=== PATIENT | male | born 1940 | race Caucasian/White ===

== ENCOUNTER 2016-05-02 08:52 | Inpatient (IN) | payer OTHER ==
--- NOTE | 2016-05-02 09:04 | PDOC ---
History of Present Illness <Lionel Richards - Last Filed: 05/02/16 13:23> - General History Source: Patient Exam Limitations: No Limitations - History of Present Illness Initial Comments: 05/02/16 09:19 The patient is a 76-year-old male with a significant past medical history of BPH and HTN, and presents to the emergency department with inguinal swelling and abdominal pain for 2 days. The patient reports that he developed a hernia in the right groin area, which worsened in size as he was shoveling for the past 2 days. He reports increasing RLQ pain and swelling, which radiates to the midgastric region. He reports associated nausea, constipation, and loss of appetite. The patient denies chest pain, shortness of breath, headache and dizziness. The patient denies fever, chills, vomit, and diarrhea. The patient denies dysuria, frequency, urgency and hematuria. Allergies: NKDA Social History: Current everyday smoker (20 cigarettes per day) PCP: Dr. Ivey <January Cortes - Last Filed: 05/02/16 13:52> - General Chief Complaint: Pain, Acute Stated Complaint: STOMACH PAIN Time Seen by Provider: 05/02/16 09:03 Past History <Lionel Richards - Last Filed: 05/02/16 13:23> <January Cortes - Last Filed: 05/02/16 13:52> - Past Medical History Allergies/Adverse Reactions: Allergies Allergy/AdvReac Type Severity Reaction Status Date / Time No Known Allergies Allergy Verified 05/02/16 09:02 Home Medications: Ambulatory Orders Amlodipine Besylate/Benazepril [Lotrel 5-40 mg Capsule] 1 each PO DAILY Atorvastatin Calcium 20 mg PO DAILY 05/02/16 Cholecalciferol (Vitamin D3) [Vitamin D3 -] 1,000 unit PO DAILY 05/02/16 Clopidogrel Bisulfate [Plavix -] 75 mg PO DAILY 05/02/16 Tamsulosin HCl 0.4 mg PO DAILY 05/02/16 Review of Systems - Review of Systems Able to Perform ROS?: Yes Comments:: 05/02/16 09:19 GENERAL/CONSTITUTIONAL: No fever or chills. No weakness. (+) Loss of appetite. HEAD, EYES, EARS, NOSE AND THROAT: No change in vision. No ear pain or discharge. No sore throat. CARDIOVASCULAR: No chest pain or shortness of breath. RESPIRATORY: No cough, wheezing, or hemoptysis. GASTROINTESTINAL: (+) Abdominal pain. (+) Abdominal swelling. (+) Nausea. (+) Constipation. No vomiting or diarrhea. GENITOURINARY: No dysuria, frequency, or change in urination. MUSCULOSKELETAL: No joint or muscle pain. No neck or back pain. SKIN: No rash NEUROLOGIC: No headache, vertigo, loss of consciousness, or change in strength/ sensation. ENDOCRINE: No increased thirst. No abnormal weight change. HEMATOLOGIC/LYMPHATIC: No anemia, easy bleeding, or history of blood clots. ALLERGIC/IMMUNOLOGIC: No hives or skin allergy. <January Cortes - Last Filed: 05/02/16 13:52> *Physical Exam - Vital Signs Last Vital Signs Temp Pulse Resp BP Pulse Ox 97.5 F L 87 18 189/95 100 05/02/16 09:02 05/02/16 09:02 05/02/16 09:02 05/02/16 09:02 05/02/16 09:02 - Physical Exam Comments: 05/02/16 09:19 GENERAL: Awake, alert, and fully oriented, in no acute distress HEAD: No signs of trauma EYES: PERRLA, EOMI, sclera anicteric, conjunctiva clear ENT: Auricles normal inspection, hearing grossly normal, nares patent, oropharynx clear without exudates. Moist mucosa NECK: Normal ROM, supple, no lymphadenopathy, JVD, or masses LUNGS: Breath sounds equal, clear to auscultation bilaterally. No wheezes, and no crackles HEART: Regular rate and rhythm, normal S1 and S2, no murmurs, rubs or gallops ABDOMEN: (+) Incarcerated right inguinal hernia. Soft, normoactive bowel sounds. No guarding, no rebound. EXTREMITIES: Normal range of motion, no edema. No clubbing or cyanosis. No cords, erythema, or tenderness NEUROLOGICAL: Cranial nerves II through XII grossly intact. Normal speech, normal gait SKIN: Warm, Dry, normal turgor, no rashes or lesions noted. <January Cortes - Last Filed: 05/02/16 13:52> Heart Score/ECG Review - ECG Impressions Comment:: 05/02/16 09:29 Sinus rhythm with occasional premature ventricular complexes and premature atrial complexes. <January Cortes - Last Filed: 05/02/16 13:52> ED Treatment Course - LABORATORY CBC & Chemistry Diagram: 05/02/16 09:30 05/02/16 09:30 <Lionel Richards - Last Filed: 05/02/16 13:23> - LABORATORY CBC & Chemistry Diagram: 05/02/16 09:30 05/02/16 09:30 - RADIOLOGY Radiograph Interpretation: 05/02/16 13:51 CHEST XR PORTABLE Reviewed by: Dr. Lionel Richards Interpreted by: Dr. Theresa Pimentel IMPRESSION: Minimal atelectatic changes in the left lung base without gross evidence of infiltrates. ABDOMEN & PELVIS CT W/ CONTRAST Reviewed by: Dr. Lionel Richards Interpreted by: Dr. Theresa Pimentel IMPRESSION: Moderate distention of the small bowel loops measuring up to 3.7 cm in diameter with air-fluid levels down to the level of a herniating small bowel loop into a previously visualized moderate-sized fat-containing right inguinal hernia consistent with small bowel obstruction at this level. Rule out incarceration. <January Cortes - Last Filed: 05/02/16 13:52> Medical Decision Making - Medical Decision Making 05/02/16 13:26 Called and discussed case with Dr. Ivey. Called and discussed case with Dr. Scott Castle (surgery). <January Cortes - Last Filed: 05/02/16 13:52> *DC/Admit/Observation/Transfer - Discharge Dispostion Admit: Yes - Attestations Physician Attestion: 05/02/16 09:03 I, Dr. Lionel Richards, attest that this document has been prepared under my direction and personally reviewed by me in its entirety. I further attest, that it accurately reflects all work, treatment, procedures and medical decision -making performed by me. <Lionel Richards - Last Filed: 05/02/16 13:23> - Attestations Scribe Attestion: 05/02/16 09:20 Documentation prepared by January Cortes, acting as medical fee clerk for Lionel Richards MD. <January Cortes - Last Filed: 05/02/16 13:52> Diagnosis at time of Disposition: Incarcerated right inguinal hernia, Small bowel obstruction, partial - Discharge Dispostion Condition at time of disposition: Improved - Referrals
[2016-05-02] MEDS ORDERED: HYDROmorphone HCL CARPU-JECT 1 MG/1 ML DISP.SYRIN IVPUSH ONE ×2 (09:11→13:12)
[2016-05-02] MEDS ORDERED: ONDANSETRON 4 MG/2 ML VIAL IVPUSH ONE ×2 (09:11→13:12)
[2016-05-02] MEDS ORDERED: LORAZEPAM CARPU-JECT 2 MG/ML DISP.SYRIN IVPUSH ONE ×2 (09:11→13:12)
[2016-05-02] MEDS ORDERED: ONDANSETRON 4 MG/2 ML VIAL ONE ×3 (09:22→22:42)
[2016-05-02] MEDS ORDERED: LORAZEPAM CARPU-JECT 2 MG/ML DISP.SYRIN ONE (09:22)
[2016-05-02] MEDS ORDERED: HYDROmorphone HCL CARPU-JECT 1 MG/1 ML DISP.SYRIN ONE ×2 (09:22→13:19)
[2016-05-02 09:37] LABS: BASOPHIL 0.2 % (0-2.0); EOSINOPHIL 0.1 % (0-4.5); MCH 28.9 pg (25.7-33.7); MCHC 33.3 g/dl (32.0-35.9); MEAN CELL VOLUME 86.9 fl (80-96); MEAN PLT VOLUME 8.4 fl (7.5-11.1); NEUTROPHILS 89.5 % (42.8-82.8); PLATELET COUNT 261 K/MM3 (134-434); RDW 14.6 % (11.9-15.9); WHITE BLOOD COUNT 18.4 K/mm3 (4.0-10.0)
[2016-05-02 09:49] LABS: INR 0.99 (0.82-1.09); PROTHROMBIN TIME (PATIENT) 10.9 SEC (9.98-11.88)
[2016-05-02 10:13] LABS: ALBUMIN 3.8 g/dl (3.4-5.0); ANION GAP 9 (8-16); BILIRUBIN,TOTAL 0.7 mg/dL (0.2-1.0); CALCIUM 9.3 mg/dL (8.5-10.1); CO2 27 mmol/L (21-32); GLUCOSE,RANDOM 119 mg/dL (74-106); SGOT/AST 17 U/L (15-37); SGPT/ALT 15 U/L (12-78); TOT PROT 7.2 g/dl (6.4-8.2)
[2016-05-02 10:16] LABS: ALK PHOS 94 U/L (45-117); TROPONIN I < 0.02 ng/ml (0.00-0.05)
--- NOTE | 2016-05-02 10:59 | EKG ---
Test Reason : Blood Pressure : / mmHG Vent. Rate : 081 BPM Atrial Rate : 081 BPM P-R Int : 132 ms QRS Dur : 092 ms QT Int : 382 ms P-R-T Axes : 075 076 078 degrees QTc Int : 443 ms SINUS RHYTHM WITH OCCASIONAL PREMATURE VENTRICULAR COMPLEXES AND PREMATURE ATRIAL COMPLEXES POSSIBLE LEFT ATRIAL ENLARGEMENT NO PREVIOUS ECGS AVAILABLE Confirmed by GURU MOSQUERA MD ([id number]) on 05/02/2016 10:58:32 AM Referred By: Confirmed By:GURU MOSQUERA MD
[2016-05-02] MEDS ORDERED: METRONIDAZOLE 500 MG PREMIXED 100 ML IVPB ONE ×2 (13:16→13:31)
[2016-05-02] MEDS ORDERED: CEFTRIAXONE 1 GM in DEXTROSE 5%-WATER - 50 ML IVPB ONE (13:16)
[2016-05-02] MEDS ORDERED: CEFTRIAXONE 50 ML ONE (13:31)
[2016-05-02 15:34] VITALS: BMI 20.7
[2016-05-02] MEDS ORDERED: ONDANSETRON 4 MG/2 ML VIAL IVPB PRN ×2 (16:13→22:52)
[2016-05-02] MEDS ORDERED: D5-1/2NS+20 MEQ KCL - 1,000 ML IV SCH (16:15)
[2016-05-02] MEDS: HYDROmorphone HCL CARPU-JECT 1 MG/1 ML DISP.SYRIN IVPB PRN ×2 (16:39→20:18)
--- NOTE | 2016-05-02 17:06 | HP ---
Admitting History and Physical - Admission History of Present Illness: 76-year-old male with a significant past medical history of BPH and HTN, and presents to the emergency department with inguinal swelling and abdominal pain for 2 days. The patient reports that he developed a hernia in the right groin area, which worsened in size as he was shoveling for the past 2 days. He reports increasing RLQ pain and swelling, which radiates to the midgastric region. He reports associated nausea, constipation, and loss of appetite. The patient denies chest pain, shortness of breath, headache and dizziness. The patient denies fever, chills, vomit, and diarrhea. The patient denies dysuria, frequency, urgency and hematuria. - Past Medical History Cardiovascular: Yes: HTN, Hyperlipdemia Pulmonary: Yes: COPD Renal/: Yes: BPH - Smoking History Smoking history: Current every day smoker Aproximately how many cigarettes per day: 20 - Alcohol/Substance Use Hx Alcohol Use: No Home Medications - Allergies Allergies/Adverse Reactions: Allergies Allergy/AdvReac Type Severity Reaction Status Date / Time No Known Allergies Allergy Verified 05/02/16 09:02 - Home Medications Home Medications: Ambulatory Orders Amlodipine Besylate/Benazepril [Lotrel 5-40 mg Capsule] 1 each PO DAILY Atorvastatin Calcium 20 mg PO DAILY 05/02/16 Cholecalciferol (Vitamin D3) [Vitamin D3 -] 1,000 unit PO DAILY 05/02/16 Clopidogrel Bisulfate [Plavix -] 75 mg PO DAILY 05/02/16 Tamsulosin HCl 0.4 mg PO DAILY 05/02/16 Review of Systems - Review of Systems Cardiovascular: denies: Chest Pain, Palpitations Respiratory: denies: SOB Gastrointestinal: reports: Abdominal Pain Neurological: denies: Change in LOC Physical Examination Vital Signs: Vital Signs Temperature 98.6 F 05/02/16 15:07 Pulse Rate 90 05/02/16 15:07 Respiratory Rate 18 05/02/16 15:07 Blood Pressure 142/81 05/02/16 15:07 O2 Sat by Pulse Oximetry (%) 96 05/02/16 15:07 Cardiovascular: Yes: Regular Rate and Rhythm Respiratory: Yes: Regular, CTA Bilaterally Gastrointestinal: Yes: Normal Bowel Sounds, Soft, Tenderness, Other (righ inguinal hernia--tender) Edema: No Neurological: Yes: Alert, Oriented Imaging - Results Cat Scan: Report Reviewed Problem List - Problems (1) Incarcerated right inguinal hernia Assessment/Plan: NPO SURGICAL CONSULT IVF IV ABX Code(s): K40.30 - UNIL INGUINAL HERNIA, W OBST, W/O GANGR, NOT SPCF RECUR (2) Small bowel obstruction, partial Assessment/Plan: ABOVE Code(s): K56.69 - OTHER INTESTINAL OBSTRUCTION (3) HTN (hypertension) Assessment/Plan: SAME MEDS AND MONITOR Code(s): I10 - ESSENTIAL (PRIMARY) HYPERTENSION (4) HLD (hyperlipidemia) Assessment/Plan: ON STATIN Code(s): E78.5 - HYPERLIPIDEMIA, UNSPECIFIED (5) Leukocytosis Assessment/Plan: IV ABX FOLLOW LABS Code(s): D72.829 - ELEVATED WHITE BLOOD CELL COUNT, UNSPECIFIED
[2016-05-02] MEDS ORDERED: ALBUTEROL SO4 0.083% IH SOL 2.5 MG/3 ML VIAL.NEB. NEB SCH (18:00)
[2016-05-02] MEDS ORDERED: CEFAZOLIN (PRE-DOCKED) 50 ML IVPB ONE (20:20)
--- NOTE | 2016-05-02 20:20 | PN ---
Progress Note (short form) - Note Progress Note: surgery pt seen and examined. full consult dictated. 76m with previous b/l inguinal hernia repair, presetns with abd pain and a large lump in his right groin after shoveling snow several days ago. Pt admits to thirst and nausea. Ct shows incarcerated rih with incarcerated bowel and sbo. wbc 18. on exam incarcerated rih, non reducible despite signifcant attempt Plan- sbo from incarcerated rih. Pt on Plavix for partial blockage of a heart vessel (per pt) Normally surgery should not be done on Plavix because of risk of bleed and 8 days is needed to wear off. Since the patient in incarcerated with sbo and possible compromised bowel, waiting 8 days is not a reasonable option. Will proceed with emergent surgery with known bleeding risk. Bleeding should be mangeable during the surgery but pt will likely develop significant hematoma/ecchymosis. Pt refusing ngt decompression. will give ancef prophylaxis. +/- mesh.
[2016-05-02] MEDS ORDERED: LIDOCAINE HCL/PF 2% SDV 5ML VIAL ONE (20:57)
[2016-05-02] MEDS ORDERED: ROCURONIUM BROMIDE 50 MG/5 ML VIAL ONE (20:58)
[2016-05-02] MEDS ORDERED: PROPOFOL 20 ML ONE (20:58)
[2016-05-02] MEDS ORDERED: SUCCINYLCHOLINE CHLORIDE 200 MG/10 ML VIAL ONE (20:58)
[2016-05-02] MEDS ORDERED: ATORVASTATIN CA 20 MG TABLET (FP) PO SCH (22:00)
--- NOTE | 2016-05-02 22:03 | CONS ---
DATE OF CONSULTATION: 05/02/2016 REASON FOR CONSULTATION: Incarcerated right inguinal hernia, small bowel obstruction. This is an emergency room consultation at the request of the emergency room physician. BRIEF HISTORY: This is a 76-year-old male who was unfortunately on Plavix for a possible heart condition who smokes cigarettes and was recently shoveling snow. He has had bilateral inguinal hernia repair in the past and states he has noticed a small lump in his right groin for some time now. He states after shoveling snow, the lump became big. Today became painful, and became nauseous. Because of this, came into the [facility] emergency room where he was noted to have an incarcerated right inguinal hernia. The emergency room physician gave several attempts at reducing it and was unable to do so, and the patient went for her CAT scan of the abdomen and pelvis which not only confirmed the hernia, but showed that there was an incarcerated loop of small bowel and a small bowel obstruction. The patient was also noted to have an elevated white blood cell count of 18,000. He was admitted to the hospital, given pain medication. Ice packs were applied to his groin for several hours. He was also placed in Trendelenburg position, and a surgical consultation was requested. He denies vomiting. He denies diarrhea. Denies blood in his stool. Denies recent weight loss. PAST MEDICAL HISTORY: Significant for benign prostatic hypertrophy, hypertension, coronary artery disease, hyperlipidemia. SOCIAL HISTORY: Positive for tobacco. He has been encouraged to quit. ALLERGIES: No known drug allergies. HOME MEDICATIONS: Includes Lipitor, Norvasc, Plavix, Flomax, vitamin D. FAMILY HISTORY: Noncontributory. PAST SURGICAL HISTORY: Only includes the bilateral open inguinal hernia repair. REVIEW OF SYSTEMS: General: Denies fatigue or malaise. Cardiac: Denies chest pain or palpitations. Respiratory: Denies shortness of breath, wheeze. Gastrointestinal: As in HPI. Genitourinary: Denies dysuria but does have benign prostatic hypertrophy with sometimes difficulty urinating. Musculoskeletal: Denies joint pain, joint swelling. Psychiatric: Denies anxiety, depression, or hearing voices. PHYSICAL EXAMINATION: General: This is a thin 76-year-old male in no distress. Vital signs: He is afebrile. His heart rate is 100. His blood pressure is 128/62. HEENT: Head is normocephalic. Sclerae anicteric. Neck: Supple. Chest: Clear. Abdomen: Soft. It is mildly distended. He has 2 inguinal hernia scars. He has an incarcerated right inguinal hernia that I am unable to reduce despite over 5 minutes of gentle pressure and isolation of the hernia sac. Extremities: No edema. ASSESSMENT: This is a 76-year-old male with risk factors for hernia including smoking, benign prostatic hypertrophy, and previous hernia repair, who was recently shoveling snow, and developed an incarceration of his right inguinal hernia. CAT scan confirms a loop of bowel and bowel obstruction with incarceration. He has an elevated white blood cell count. At this point, I am unable to reduce the hernia, and I am concerned that he may go on to develop bowel compromise. Unfortunately, he is currently on Plavix, which will increase his risk of bleeding during surgery. Unfortunately, Plavix takes 8 days to wear off, and that is not reasonable to wait 8 days to do this surgery. At this point, I will proceed with emergent surgery with known risk of likely hematoma of his scrotum and of his subcutaneous tissues. Major bleeding should be able to be controlled at the time of surgery. Risks and benefits of surgery have been explained to patient in detail. These are including but not limited to the possibility of bleed, the possibility of recurrence, the possibility of chronic pain, the possibility of mesh infection if it is used, the possibility of chronic nerve pain, the possibility of injury to his testicle, the possibility of decreased fertility. Patient understands these risks and is agreeable to surgery. DO YURIDIA SANCHEZ/[id number]
[2016-05-02] MEDS ORDERED: NEOSTIGMINE METHYLSULFATE 0.5 MG/ML - 10 ML MDV ONE (22:14)
[2016-05-02] MEDS ORDERED: KETOROLAC TROMETHAMINE 30 MG/1 ML VIAL ONE (22:23)
[2016-05-02] MEDS ORDERED: oxyCODONE HCL 5 MG TABLET PO PRN ×2 (22:33→22:52)
[2016-05-02] MEDS ORDERED: ONDANSETRON 4 MG/2 ML VIAL IVPUSH PRN ×2 (22:33→22:52)
[2016-05-02] MEDS ORDERED: PROMETHAZINE HCL 25 MG/1 ML VIAL IVPUSH PRN ×2 (22:33→22:52)
--- NOTE | 2016-05-02 22:34 | OP ---
Operative Note - Note: Operative Date: 05/02/16 Pre-Operative Diagnosis: incarcerated recurrent right inguinal hernia, sbo Operation: open repair incarcerated recurrent right inguinal hernia Findings: incarcerated sliding hernia containing bladder and small bowel through a direct defect. bowel was viable but possible bacterial contamination precluded using permanent mesh Implants: 4"x6" phasix absorbable mesh overlay Post-Operative Diagnosis: Same as Pre-op Surgeon: Anjel Carver Anesthesiologist/SINGEING TORCH OPERATOR: Anjel Romero Anesthesia: General Estimated Blood Loss (mls): 30 Operative Report Dictated: Yes
[2016-05-02] MEDS ORDERED: HYDROmorphone HCL CARPU-JECT 1 MG/1 ML DISP.SYRIN IVPB PRN (22:52)
[2016-05-02] MEDS: ACETAMINOPHEN 1000 MG/100 ML VIAL (NON FORMULARY) IVPB ONE (22:55)
[2016-05-02] MEDS ORDERED: ACETAMINOPHEN INJECTION 100 ML IVPB ONE (22:56)
[2016-05-02] MEDS: ALBUTEROL SO4 0.083% IH SOL 2.5 MG/3 ML VIAL.NEB. NEB SCH (23:00)
[2016-05-02] MEDS: ERTAPENEM SODIUM 1 GM/50 ML PRE-DOCKED IVPB ONE (23:40)
[2016-05-02] MEDS: D5-1/2NS+20 MEQ KCL - 1,000 ML IV SCH (23:40)
[2016-05-03 00:04] LABS: TROPONIN I < 0.02 ng/ml (0.00-0.05)
[2016-05-03] MEDS: ALBUTEROL SO4 0.083% IH SOL 2.5 MG/3 ML VIAL.NEB. NEB SCH ×2 (06:32→11:35)
--- NOTE | 2016-05-03 07:10 | OP ---
DATE OF OPERATION: 05/02/2016 PREOPERATIVE DIAGNOSIS: Incarcerated, recurrent right inguinal hernia with small bowel obstruction. POSTOPERATIVE DIAGNOSIS: Incarcerated, recurrent right inguinal hernia with small bowel obstruction. PROCEDURE: Open repair of recurrent incarcerated right inguinal hernia. SURGEON: Anjel Carver DO STATISTICAL METHODS TEACHER: None. ANESTHESIOLOGIST: Anjel Romero MD (general) SPECIMENS: None. IMPLANTS: Phasix 4-inch x 6-inch absorbable mesh as an overlay. DRAINS: None. DISPOSITION: To recovery room in stable condition. BRIEF HISTORY: This is a 76-year-old male on Plavix who presented to [facility] Emergency Room with a recurrent incarcerated right inguinal hernia with a loop of small bowel stuck within the hernia causing a small bowel obstruction. He had a leukocytosis, and he presents now for surgery despite being on Plavix because of concern for bowel compromise. DESCRIPTION OF PROCEDURE: The patient was placed in a supine position. After general anesthesia was initiated, the abdomen was prepped and draped in a sterile fashion. Ancef was given prophylaxis. Next, an incision was made from the pubic tubercle in the right approximately 5 inches toward the ASIS on the right along the previous scar. Electrocautery was used to go through skin and subcutaneous tissue. A thin remnant of the external oblique fascia was opened. The patient's anatomy had been altered from previous surgery. The inguinal cord was identified. The pubic tubercle was identified. A hernia sac was identified, merged with the cord. This was dissected off the cord. There appeared to be compromise to the contents of the sac. The sac was dissected down. It appeared to go down into a direct space medial to where the cord entered. The hernia sac was opened. There was some bloody fluid within it. Part of the hernia sac appeared to be bladder and, thus, a sliding hernia. A loop of small bowel was identified in the hernia. The fascial defect was incised vertically in order to allow delivery of the bowel into the field. There was an area of subserosal hemorrhage. This was inspected. The bowel was initially congested but it returned to normal form. A plication was done with Lembert sutures over the small 1-cm area of subserosal hemorrhage. The bowel appeared to be viable. At this point, it was placed back into the abdominal cavity. The hernia sac wound resected as part of the wall was the bladder. The hernia sac was closed with running chromic suture. It was then placed back into the abdominal cavity. Some of the preperitoneal plane was developed exposing the remnant of the conjoined tendon medially and the ilioinguinal ligament laterally. At this point, consideration was made toward placing mesh in an underlay fashion into the space, but it was felt that there was likely bacterial translocation, and the decision was made not to use mesh in this space. A primary repair was then done with running 0 PDS sutures completely closing the space. This defect was separate from the internal ring fashioned from the previous surgery. Next, the wound was irrigated. Decision was made to reinforce the repair with an overlay Phasix mesh, which in the unlikely event that it did become infected it was absorb not creating a permanent problem. This was only done because the tissue had limited integrity, and the patient had a history of benign prostatic hypertrophy , coughing from smoking, likely constipation, and he tends to lift heavy things. The mesh was fashioned and placed over the repair. A fork was made in the mesh, and it wrapped around the cord going up that area as well. A small sliver of mesh was tucked into the previously fashioned internal ring to reinforce that area. Next , that mesh was secured with some 3-0 Vicryl sutures to the floor. At this point , the remnants of the external oblique were approximated. The subcutaneous tissue was approximated as well both with absorbable sutures. Next, the skin was stapled. Dermabond dressing was placed and a pressure dressing was placed. Consideration was made to a Riaz-Bernal drain being placed; however, even though the patient was on Plavix, there was minimal bleeding throughout the operation, and it was felt to be of unlikely benefit. At this point, the operation terminated. Blood loss was approximately 30 mL. The testicle was felt to be in proper position. The patient was sent to recovery room with plans to go back to the floor. He would remain n.p.o. and await return of bowel function. A nasogastric tube was not placed at the request of the patient who refused placement. DO YURIDIA SANCHEZ/[id number]
[2016-05-03] MEDS: D5-1/2NS+20 MEQ KCL - 1,000 ML IV SCH (08:37)
[2016-05-03 08:56] LABS: BASOPHIL 0.2 % (0-2.0); MCH 29.1 pg (25.7-33.7); MCHC 33.5 g/dl (32.0-35.9); MEAN CELL VOLUME 86.7 fl (80-96); MEAN PLT VOLUME 9.1 fl (7.5-11.1); NEUTROPHILS 89.9 % (42.8-82.8); PLATELET COUNT 197 K/MM3 (134-434); RDW 14.6 % (11.9-15.9)
[2016-05-03] MEDS: TAMSULOSIN HCL 0.4 MG CAP.ER.24H (FP) PO SCH (09:05)
[2016-05-03] MEDS: PANTOPRAZOLE SODIUM 100 ML IVPB SCH (09:05)
[2016-05-03] MEDS: LISINOPRIL 20 MG TABLET (FP) PO SCH (09:11)
[2016-05-03] MEDS: amLODIPine BESYLATE 5 MG TABLET (FP) PO SCH (09:11)
--- NOTE | 2016-05-03 09:31 | PN ---
Progress Note (short form) - Note Progress Note: ANESTHESIOLOGY POST-OP CHECK 76M s/p incarcerated inguinal hernia repair under general anesthesia, POD #1. No acute complaints. Tolerating PO, denies N/V. Pain 2/10 - tolerable Vital Signs Temperature 98.2 F 05/03/16 07:52 Pulse Rate 97 H 05/03/16 07:52 Respiratory Rate 20 05/03/16 07:52 Blood Pressure 104/60 05/03/16 07:52 O2 Sat by Pulse Oximetry (%) 96 05/03/16 00:56 Active Medications Acetaminophen (Tylenol -) 650 mg PO Q4H PRN PRN Reason: FEVER OR PAIN Albuterol Sulfate (Ventolin 0.083% Nebulizer Soln -) 1 amp NEB QIDR [facility] Last Admin: 05/03/16 06:32 Dose: 1 amp Amlodipine Besylate (Norvasc -) 5 mg PO DAILY [facility] Last Admin: 05/03/16 09:11 Dose: Not Given Atorvastatin Calcium (Lipitor -) 20 mg PO [facility] Fentanyl (Sublimaze Injection -) 50 mcg IVPUSH [id number] PRN PRN Reason: PAIN Stop: 05/05/16 22:34 Last Admin: 05/03/16 00:00 Dose: 50 mcg Hydromorphone HCl (Dilaudid Injection -) 1 mg IVPB Q4H PRN PRN Reason: PAIN Pantoprazole Sodium (Protonix 40mg Ivpb (Pre-Docked)) 100 mls @ 200 mls/hr IVPB DAILY [facility] Last Admin: 05/03/16 09:05 Dose: 200 mls/hr Potassium Chloride/Dextrose/Sod Cl (D5-1/2ns+20 Meq Kcl -) 1,000 mls @ 100 mls/ hr IV ASDIR [facility] Last Admin: 05/03/16 08:37 Dose: 100 mls/hr Lisinopril (Prinivil) 40 mg PO DAILY [facility] Last Admin: 05/03/16 09:11 Dose: Not Given Ondansetron HCl (Zofran Injection) 4 mg IVPB Q6H PRN PRN Reason: NAUSEA Last Admin: 05/02/16 22:45 Dose: 4 mg Oxycodone HCl (Roxicodone -) 10 mg PO Q4H PRN PRN Reason: SEVERE PAIN Stop: 05/03/16 22:32 Tamsulosin HCl (Flomax -) 0.4 mg PO DAILY [facility] Last Admin: 05/03/16 09:05 Dose: 0.4 mg Gen: Awake, alert No apparent anesthesia complications, pain well controlled. Continue management as per primary team.
[2016-05-03 09:49] LABS: ALBUMIN 2.8 g/dl (3.4-5.0); BILIRUBIN,TOTAL 0.6 mg/dL (0.2-1.0); CALCIUM 8.3 mg/dL (8.5-10.1); TROPONIN I 0.02 ng/ml (0.00-0.05)
[2016-05-03 09:52] LABS: CREATININE 1.4 mg/dL (0.7-1.3); TOT PROT 5.5 g/dl (6.4-8.2)
[2016-05-03] MEDS ORDERED: PATIENT'S OWN MEDICATION (NON-FORMULARY) (Amlodipine Besylate/Benazepril [Lotrel 5-40 Mg C PO SCH (10:00)
[2016-05-03] MEDS ORDERED: amLODIPine BESYLATE 5 MG TABLET (FP) PO SCH (10:00)
[2016-05-03] MEDS ORDERED: LISINOPRIL 20 MG TABLET (FP) PO SCH (10:00)
[2016-05-03] MEDS ORDERED: CLOPIDOGREL BISULFATE 75 MG TABLET (FP) PO SCH (10:00)
[2016-05-03] MEDS ORDERED: TAMSULOSIN HCL 0.4 MG CAP.ER.24H (FP) PO SCH (10:00)
--- NOTE | 2016-05-03 12:25 | CONSULT ---
Consult - text type - Consultation Consultation Note: CARDIOLOGY. ASKED BY DR. Manzo TO SEE PT. 76 YO MAN 05/02/16 RIGHT GROIN PAIN. PT SEEN, EXAMINED. X RAYS, ECG REVIEWED. WORKING DX DAY #1 S/P OPEN REPAIR OF INCARCERATED INGUINAL HERNIA. CARDIOVASCULAR/HEMODYNAMIC STATUS STABLE. NO EVIDENCE OF ACUTE CARDIAC EVENT. RELATIVE LOWER BLOOD PRESSURE MAY IN PART BE DUE TO INTRAVASCULAR VOLUME DEPLETION IN THE SETTING OF ADMINISTRATION OF ANTI HYPERTENSIVE MEDICATIONS REC: CONSIDER HOLDING AMLODIPINE DEPENDANT OF FOLLOW UP BLOOD PRESSURE LEVELS. COMPLETE CESSATION OF SMOKING. NO FURTHER CARDIAC TESTING REQUIRED. DIRECTED BY DR. Rosa/SURGERY AND DR. Manzo THANKS. FULL NOTE DICTATED. WILL FOLLOW PRN. PLEASE RECONSULT IF NECESSARY.
--- NOTE | 2016-05-03 12:48 | PN ---
Progress Note, Physician History of Present Illness: FEELS BETTER NO CP OR SOB - Current Medication List Current Medications: Active Medications Acetaminophen (Tylenol -) 650 mg PO Q4H PRN PRN Reason: FEVER OR PAIN Albuterol Sulfate (Ventolin 0.083% Nebulizer Soln -) 1 amp NEB QIDR [facility] Last Admin: 05/03/16 11:35 Dose: 1 amp Amlodipine Besylate (Norvasc -) 5 mg PO DAILY [facility] Last Admin: 05/03/16 09:11 Dose: Not Given Atorvastatin Calcium (Lipitor -) 20 mg PO [facility] Fentanyl (Sublimaze Injection -) 50 mcg IVPUSH [id number] PRN PRN Reason: PAIN Stop: 05/05/16 22:34 Last Admin: 05/03/16 00:00 Dose: 50 mcg Hydromorphone HCl (Dilaudid Injection -) 1 mg IVPB Q4H PRN PRN Reason: PAIN Pantoprazole Sodium (Protonix 40mg Ivpb (Pre-Docked)) 100 mls @ 200 mls/hr IVPB DAILY [facility] Last Admin: 05/03/16 09:05 Dose: 200 mls/hr Potassium Chloride/Dextrose/Sod Cl (D5-1/2ns+20 Meq Kcl -) 1,000 mls @ 100 mls/ hr IV ASDIR [facility] Last Admin: 05/03/16 08:37 Dose: 100 mls/hr Lisinopril (Prinivil) 40 mg PO DAILY [facility] Last Admin: 05/03/16 09:11 Dose: Not Given Ondansetron HCl (Zofran Injection) 4 mg IVPB Q6H PRN PRN Reason: NAUSEA Last Admin: 05/02/16 22:45 Dose: 4 mg Oxycodone HCl (Roxicodone -) 10 mg PO Q4H PRN PRN Reason: SEVERE PAIN Stop: 05/03/16 22:32 Tamsulosin HCl (Flomax -) 0.4 mg PO DAILY [facility] Last Admin: 05/03/16 09:05 Dose: 0.4 mg - Objective Vital Signs: Vital Signs Temperature 98.2 F 05/03/16 07:52 Pulse Rate 87 05/03/16 11:39 Respiratory Rate 20 05/03/16 07:52 Blood Pressure 104/60 05/03/16 07:52 O2 Sat by Pulse Oximetry (%) 90 L 05/03/16 11:39 Cardiovascular: Yes: Regular Rate and Rhythm Respiratory: Yes: Regular, CTA Bilaterally Gastrointestinal: Yes: Soft, Hypoactive Bowel Sounds Labs: CBC, BMP 05/03/16 07:45 05/03/16 07:45 INR, PTT INR 0.99 (0.82-1.09) 05/02/16 09:30 Problem List - Problems (1) Incarcerated right inguinal hernia Assessment/Plan: NPO SURGICAL CONSULT IVF IV ABX Operative Date: 05/02/16 Pre-Operative Diagnosis: incarcerated recurrent right inguinal hernia, sbo Operation: open repair incarcerated recurrent right inguinal hernia Findings: incarcerated sliding hernia containing bladder and small bowel through a direct defect. bowel was viable but possible bacterial contamination precluded using permanent mesh Implants: 4"x6" phasix absorbable mesh overlay Post-Operative Diagnosis: Same as Pre-op Surgeon: Anjel Carver Code(s): K40.30 - UNIL INGUINAL HERNIA, W OBST, W/O GANGR, NOT SPCF RECUR (2) Small bowel obstruction, partial Assessment/Plan: ABOVE Code(s): K56.69 - OTHER INTESTINAL OBSTRUCTION (3) HTN (hypertension) Assessment/Plan: HOLD MEDS AND MONITOR Code(s): I10 - ESSENTIAL (PRIMARY) HYPERTENSION (4) HLD (hyperlipidemia) Assessment/Plan: ON STATIN Code(s): E78.5 - HYPERLIPIDEMIA, UNSPECIFIED (5) Leukocytosis Assessment/Plan: IV ABX PER SURGERY FOLLOW LABS Code(s): D72.829 - ELEVATED WHITE BLOOD CELL COUNT, UNSPECIFIED
--- NOTE | 2016-05-03 13:53 | CONS ---
DATE OF CONSULTATION: 05/03/2016 REQUESTING PHYSICIAN: Florentin Ivey MD PATIENT PROFILE: The patient is a 76-year-old man admitted on May 02, 2016, because of right groin pain. The patient has no known heart disease. There is no history of a myocardial infarction, angina, or congestive heart failure. However, he has known hypertension and hyperlipidemia. He is admitted now with right groin pain and swelling. He was found to have clinical evidence of an incarcerated hernia, for which he underwent surgical open repair by Dr. Carver on May 02, 2016. His postoperative course has been uncomplicated. He presently denies chest pain, palpitations, shortness of breath, or syncope. He has smoked 1-2 packs of cigarettes per day in the past and continues to smoke at the present time. PRESENT MEDICATIONS: Include Prinivil 40 mg per day, Protonix 40 mg per day, Flomax 0.4 mg per day, Lipitor 20 mg per day, and amlodipine 5 mg per day. SOCIAL HISTORY: There is no history of alcohol abuse. He is a retired [employer] worker, smoking 1-2 packs of cigarettes per day as noted above. FAMILY HISTORY: His father at age 32 of a myocardial infarction. His mother of carcinoma. PRIOR MEDICAL HISTORY: Prosthetic hypertrophy, chronic obstructive lung disease, hyperlipidemia, hypertension, hernia. REVIEW OF SYSTEMS: General: No fever or chills. Gastrointestinal: No melena, no vomiting. Pulmonary: No hemoptysis. Neurological: No focal deficits. PHYSICAL EXAMINATION: General: The patient appears in no distress, lying flat, awake and alert. Vital signs: The blood pressure is 104-113/60, the temperature afebrile, the pulse is 88, the respiratory rate is 20 per minute, the oxygen saturation is 97% to 90% on ambient air. Neck: There is no neck vein distension. Lungs: There is poor air exchange bilaterally. No wheezing, no rales. Heart: The heart sounds are normal, although distant. No murmur, no gallop is audible, but PMI is normal and not displaced. Abdomen: Soft and nontender. There is no peripheral edema. The right groin is bandaged. DATA BASE: The electrocardiogram demonstrates sinus rhythm, borderline short [place] interval, premature ventricular depolarizations, possible septal infarct indeterminate age, atrial premature depolarizations are also noted. There are no acute ST- and T-wave changes seen. The chest x-ray was reviewed. There is no infiltrate, effusion, or pulmonary venous congestion. LABORATORY STUDIES OF NOTE: Includes a white blood cell count of 8.0, hematocrit 42%, platelet count 197,000. The INR is 1. The serum sodium is 134, the electrolytes are otherwise normal, BUN 39, creatinine 1.4, albumin 2.8. IMPRESSION: The working diagnosis is day No. 1 following open repair of an incarcerated inguinal hernia. The patient is presently hemodynamically stable. There is no evidence of an acute cardiac event. The relative lower blood pressure may in part be related to intravascular volume depletion in the setting of administration of antihypertensive medications. The increase in azotemia and elevation of the hematocrit on presentation is consistent with intravascular volume depletion. RECOMMENDATIONS: I recommended the followin. Consider holding amlodipine dependent on followup blood pressure levels. 2. Complete cessation of smoking. 3. Increase fluid administration/oral intake. 4. Follow up renal function studies. 5. No further cardiac testing is required at this time. 6. Workup and therapy as directed by Dr. Carver, Surgery, and Dr. Ivey. Thank you for allowing me to take part in the care of this pleasant patient. Please reconsult if any cardiovascular issues arise. ANJEL FAULKNER M.D. SHORTY/[id number] cc: MD Anjel Gamble, DO
[2016-05-03] MEDS ORDERED: SODIUM CHLORIDE 500 ML IV ONE (14:15)
--- NOTE | 2016-05-03 18:16 | PN ---
Progress Note (short form) - Note Progress Note: surgery pt seen and examined. feels well. refusing to ambulating. voding some. mild abd pain afebrile abd- soft, mild distension, minimal tenderness, incision clean A/P 1) pod#1- cont npo, cont ivf 2) sbo- resolving, now ileus, still not clinically resolved 3) dehydration- one bolus 500 given with good results, will increase ivf, follow bun/cr 4) prophylaxis- lovenox, protonix, oob, spirometer 5) possible translocation- will finish invanz. 6) sugically ok to resume Plavix if indicated.
[2016-05-03] MEDS: ACETAMINOPHEN 325 MG TABLET (FP) PO PRN (18:34)
[2016-05-03] MEDS: DEXTROSE 5%-NORMAL SALINE 1,000 ML IV SCH (18:38)
[2016-05-03] MEDS ORDERED: ERTAPENEM SODIUM 1 GM/50 ML PRE-DOCKED IVPB ONE (18:45)
[2016-05-03] MEDS: ATORVASTATIN CA 20 MG TABLET (FP) PO SCH (23:06)
[2016-05-04 07:33] LABS: BASOPHIL 0.3 % (0-2.0); EOSINOPHIL 1.4 % (0-4.5); MCH 29.2 pg (25.7-33.7); MCHC 33.8 g/dl (32.0-35.9); MEAN CELL VOLUME 86.5 fl (80-96); PLATELET COUNT 172 K/MM3 (134-434); RDW 14.9 % (11.9-15.9); WHITE BLOOD COUNT 5.4 K/mm3 (4.0-10.0)
[2016-05-04 07:48] LABS: CALCIUM 7.9 mg/dL (8.5-10.1); MAGNESIUM 2.2 mg/dL (1.8-2.4); PHOSPHOROUS 2.3 mg/dL (2.5-4.9)
[2016-05-04 07:49] LABS: CREATININE 0.8 mg/dL (0.7-1.3)
[2016-05-04] MEDS: PANTOPRAZOLE SODIUM 100 ML IVPB SCH (09:45)
[2016-05-04] MEDS: amLODIPine BESYLATE 5 MG TABLET (FP) PO SCH (09:45)
[2016-05-04] MEDS: TAMSULOSIN HCL 0.4 MG CAP.ER.24H (FP) PO SCH (09:45)
[2016-05-04] MEDS: LISINOPRIL 20 MG TABLET (FP) PO SCH (09:46)
--- NOTE | 2016-05-04 10:09 | PN ---
Progress Note, Physician History of Present Illness: FEELS BETTER NO CP OR SOB - Current Medication List Current Medications: Active Medications Acetaminophen (Tylenol -) 650 mg PO Q4H PRN PRN Reason: FEVER OR PAIN Last Admin: 05/03/16 18:34 Dose: 650 mg Amlodipine Besylate (Norvasc -) 5 mg PO DAILY [facility] Last Admin: 05/04/16 09:45 Dose: 5 mg Atorvastatin Calcium (Lipitor -) 20 mg PO HS [facility] Last Admin: 05/03/16 23:06 Dose: 20 mg Fentanyl (Sublimaze Injection -) 50 mcg IVPUSH [id number] PRN PRN Reason: PAIN Stop: 05/05/16 22:34 Last Admin: 05/03/16 00:00 Dose: 50 mcg Pantoprazole Sodium (Protonix 40mg Ivpb (Pre-Docked)) 100 mls @ 200 mls/hr IVPB DAILY [facility] Last Admin: 05/04/16 09:45 Dose: 200 mls/hr Dextrose/Sodium Chloride (D5-Ns -) 1,000 mls @ 125 mls/hr IV ASDIR [facility] Last Admin: 05/03/16 18:38 Dose: 125 mls/hr Lisinopril (Prinivil) 40 mg PO DAILY [facility] Last Admin: 05/04/16 09:46 Dose: 40 mg Tamsulosin HCl (Flomax -) 0.4 mg PO DAILY [facility] Last Admin: 05/04/16 09:45 Dose: 0.4 mg - Objective Vital Signs: Vital Signs Temperature 98.0 F 05/04/16 06:36 Pulse Rate 84 05/04/16 06:36 Respiratory Rate 20 05/04/16 06:36 Blood Pressure 115/62 05/04/16 06:36 O2 Sat by Pulse Oximetry (%) 91 L 05/03/16 22:00 Cardiovascular: Yes: Regular Rate and Rhythm Respiratory: Yes: Regular, CTA Bilaterally Gastrointestinal: Yes: Normal Bowel Sounds, Soft, Tenderness (LESS) Labs: CBC, BMP 05/04/16 06:15 05/04/16 06:15 INR, PTT INR 0.99 (0.82-1.09) 05/02/16 09:30 Problem List - Problems (1) Incarcerated right inguinal hernia Assessment/Plan: NPO SURGICAL CONSULT IVF IV ABX Operative Date: 03/17/17 Pre-Operative Diagnosis: incarcerated recurrent right inguinal hernia, sbo Operation: open repair incarcerated recurrent right inguinal hernia Findings: incarcerated sliding hernia containing bladder and small bowel through a direct defect. bowel was viable but possible bacterial contamination precluded using permanent mesh Implants: 4"x6" phasix absorbable mesh overlay Post-Operative Diagnosis: Same as Pre-op Surgeon: Anjel Carver Code(s): K40.30 - UNIL INGUINAL HERNIA, W OBST, W/O GANGR, NOT SPCF RECUR (2) Small bowel obstruction, partial Assessment/Plan: ABOVE Code(s): K56.69 - OTHER INTESTINAL OBSTRUCTION (3) HTN (hypertension) Assessment/Plan: HOLD MEDS AND MONITOR Selected Entries 05/03/16 05/04/16 22:00 06:36 Blood Pressure 119/58 115/62 Code(s): I10 - ESSENTIAL (PRIMARY) HYPERTENSION (4) HLD (hyperlipidemia) Assessment/Plan: ON STATIN Code(s): E78.5 - HYPERLIPIDEMIA, UNSPECIFIED (5) Leukocytosis Code(s): D72.829 - ELEVATED WHITE BLOOD CELL COUNT, UNSPECIFIED
[2016-05-04] MEDS ORDERED: oxyCODONE HCL 5 MG TABLET PO PRN (12:38)
[2016-05-04] MEDS: ONDANSETRON 4 MG/2 ML VIAL IVPB PRN ×2 (12:44→20:10)
[2016-05-04] MEDS: ACETAMINOPHEN 325 MG TABLET (FP) PO PRN (12:47)
--- NOTE | 2016-05-04 13:56 | PN ---
Progress Note (short form) - Note Progress Note: surgery pt seen and examined. ambulating. some flatus. no bm. some nausea. afebrile abd- soft, mild distension, still minimal tenderness, incision clean Laboratory Tests 05/04/16 05/04/16 06:15 06:15 WBC 5.4 D Sodium 139 Potassium 4.0 BUN 29 H D Creatinine 0.8 D Phosphorus 2.3 L A/P 1) pod#2- cont npo, cont ivf 2) sbo- resolving, now ileus, still not clinically resolved with some nausea and tenderness 3) dehydration- improving, bun dropping, cont ivf 4) prophylaxis- lovenox, protonix, oob, spirometer 5) possible translocation- off abx, wbc wnl, no fever 6) sugically ok to resume Plavix if indicated. 7) hyponatremia- resolved on NS 8) hypophosphatemia- will replace
[2016-05-04] MEDS ORDERED: SODIUM PHOSPHATE - 27 MM in DEXTROSE 5%-WATER - 250 ML IVPB ONE (14:15)
[2016-05-04] MEDS: DEXTROSE 5%-NORMAL SALINE 1,000 ML IV SCH (15:12)
[2016-05-04] MEDS: ATORVASTATIN CA 20 MG TABLET (FP) PO SCH (21:27)
[2016-05-04] MEDS: ERTAPENEM SODIUM 1 GM/50 ML PRE-DOCKED IVPB ONE (21:30)
[2016-05-04] MEDS: ACETAMINOPHEN 1000 MG/100 ML VIAL (NON FORMULARY) IVPB ONE (21:32)
[2016-05-05] MEDS: ACETAMINOPHEN 325 MG TABLET (FP) PO PRN (01:21)
[2016-05-05] MEDS: DEXTROSE 5%-NORMAL SALINE 1,000 ML IV SCH ×2 (02:55→13:05)
[2016-05-05 07:22] LABS: BASOPHIL 0.1 % (0-2.0); EOSINOPHIL 0.7 % (0-4.5); MCH 29.6 pg (25.7-33.7); MCHC 34.1 g/dl (32.0-35.9); MEAN CELL VOLUME 86.7 fl (80-96); MEAN PLT VOLUME 8.8 fl (7.5-11.1); NEUTROPHILS 77.5 % (42.8-82.8); PLATELET COUNT 188 K/MM3 (134-434); RDW 14.5 % (11.9-15.9); WHITE BLOOD COUNT 5.4 K/mm3 (4.0-10.0)
[2016-05-05 07:50] LABS: CALCIUM 7.8 mg/dL (8.5-10.1); CREATININE 0.7 mg/dL (0.7-1.3); MAGNESIUM 2.1 mg/dL (1.8-2.4); PHOSPHOROUS 2.8 mg/dL (2.5-4.9)
[2016-05-05] MEDS: amLODIPine BESYLATE 5 MG TABLET (FP) PO SCH (09:30)
[2016-05-05] MEDS: TAMSULOSIN HCL 0.4 MG CAP.ER.24H (FP) PO SCH (09:30)
[2016-05-05] MEDS: LISINOPRIL 20 MG TABLET (FP) PO SCH (09:30)
[2016-05-05] MEDS: PANTOPRAZOLE SODIUM 100 ML IVPB SCH (09:30)
--- NOTE | 2016-05-05 10:41 | PN ---
Progress Note, Physician Chief Complaint: pateint says he is passing gas and burping no bm as yet NPO - Current Medication List Current Medications: Active Medications Acetaminophen (Tylenol -) 650 mg PO Q4H PRN PRN Reason: FEVER OR PAIN Last Admin: 05/05/16 01:21 Dose: 650 mg Amlodipine Besylate (Norvasc -) 5 mg PO DAILY [facility] Last Admin: 05/05/16 09:30 Dose: 5 mg Atorvastatin Calcium (Lipitor -) 20 mg PO HS [facility] Last Admin: 05/04/16 21:27 Dose: 20 mg Fentanyl (Sublimaze Injection -) 50 mcg IVPUSH [id number] PRN PRN Reason: PAIN Stop: 05/05/16 22:34 Last Admin: 05/03/16 00:00 Dose: 50 mcg Pantoprazole Sodium (Protonix 40mg Ivpb (Pre-Docked)) 100 mls @ 200 mls/hr IVPB DAILY [facility] Last Admin: 05/05/16 09:30 Dose: 200 mls/hr Dextrose/Sodium Chloride (D5-Ns -) 1,000 mls @ 125 mls/hr IV ASDIR [facility] Last Admin: 05/05/16 02:55 Dose: 125 mls/hr Lisinopril (Prinivil) 40 mg PO DAILY [facility] Last Admin: 05/05/16 09:30 Dose: 40 mg Ondansetron HCl (Zofran Injection) 4 mg IVPB Q6H PRN PRN Reason: NAUSEA AND/OR VOMITING Last Admin: 05/04/16 20:10 Dose: 4 mg Oxycodone HCl (Roxicodone -) 5 mg PO Q4H PRN PRN Reason: PAIN Last Admin: 05/04/16 12:46 Dose: 5 mg Tamsulosin HCl (Flomax -) 0.4 mg PO DAILY [facility] Last Admin: 05/05/16 09:30 Dose: 0.4 mg - Objective Vital Signs: Vital Signs Temperature 98.3 F 05/05/16 06:00 Pulse Rate 73 05/05/16 06:00 Respiratory Rate 20 05/05/16 06:00 Blood Pressure 146/74 05/05/16 06:00 O2 Sat by Pulse Oximetry (%) 95 05/04/16 09:00 Constitutional: Yes: Calm Neck: Yes: Trachea Midline Cardiovascular: Yes: Regular Rate and Rhythm, S1, S2 Respiratory: Yes: CTA Bilaterally, Diminished (at bases) Gastrointestinal: Yes: Soft, Hypoactive Bowel Sounds, Other (merrick clean) Neurological: Yes: Alert, Oriented Labs: CBC, BMP 05/05/16 06:20 05/05/16 06:20 INR, PTT INR 0.99 (0.82-1.09) 05/02/16 09:30 Problem List - Problems (1) Incarcerated right inguinal hernia Assessment/Plan: s/p surgery NPO gi and dvt ppx ambulating with walker Code(s): K40.30 - UNIL INGUINAL HERNIA, W OBST, W/O GANGR, NOT SPCF RECUR (2) HLD (hyperlipidemia) Assessment/Plan: statin Code(s): E78.5 - HYPERLIPIDEMIA, UNSPECIFIED (3) HTN (hypertension) Assessment/Plan: contnue meds Code(s): I10 - ESSENTIAL (PRIMARY) HYPERTENSION (4) Small bowel obstruction, partial Assessment/Plan: electryoltes ok improving Code(s): K56.69 - OTHER INTESTINAL OBSTRUCTION
--- NOTE | 2016-05-05 18:34 | PN ---
Progress Note (short form) - Note Progress Note: surgery pt seen and examined. more flatus. refused to ambulate earlier but ambulating now. no bm. some nausea. afebrile abd- soft, less distension, still minimal tenderness, incision clean Laboratory Tests 05/03/16 05/03/16 05/05/16 07:45 07:45 06:20 WBC 8.0 D 5.4 Sodium 134 L Potassium BUN 39 H D Creatinine 1.4 H D Phosphorus 05/05/16 06:20 WBC Sodium 140 Potassium 3.8 BUN Creatinine Phosphorus 2.8 D A/P 1) pod#3- cont npo, cont ivf 2) sbo- resolving, now ileus, still not clinically resolved with some nausea and tenderness, if patient walked more it resolve sooner 3) dehydration- improving, bun dropping, cont ivf 4) prophylaxis- lovenox, protonix, oob, spirometer 5) possible translocation- off abx, wbc wnl, no fever 6) sugically ok to resume Plavix if indicated. 7) hyponatremia- resolved on NS 8) hypophosphatemia- resolved
[2016-05-05] MEDS: D5-NS + 20 MEQ KCL - 1,000 ML IV SCH (19:32)
[2016-05-05] MEDS: ATORVASTATIN CA 20 MG TABLET (FP) PO SCH (21:14)
[2016-05-05] MEDS: ONDANSETRON 4 MG/2 ML VIAL IVPB PRN (23:24)
[2016-05-06] MEDS: D5-NS + 20 MEQ KCL - 1,000 ML IV SCH ×3 (03:26→17:49)
--- NOTE | 2016-05-06 08:41 | PN ---
Progress Note, Physician History of Present Illness: NO BM - Current Medication List Current Medications: Active Medications Acetaminophen (Tylenol -) 650 mg PO Q4H PRN PRN Reason: FEVER OR PAIN Last Admin: 05/05/16 01:21 Dose: 650 mg Amlodipine Besylate (Norvasc -) 5 mg PO DAILY [facility] Last Admin: 05/05/16 09:30 Dose: 5 mg Atorvastatin Calcium (Lipitor -) 20 mg PO HS [facility] Last Admin: 05/05/16 21:14 Dose: 20 mg Clopidogrel Bisulfate (Plavix -) 75 mg PO DAILY [facility] Pantoprazole Sodium (Protonix 40mg Ivpb (Pre-Docked)) 100 mls @ 200 mls/hr IVPB DAILY [facility] Last Admin: 05/05/16 09:30 Dose: 200 mls/hr Dextrose/Sodium Chloride (Dextrose 5%-Normal Saline+20 Meq Kcl -) 1,000 mls @ 125 mls/hr IV ASDIR [facility] Last Admin: 05/06/16 03:26 Dose: 125 mls/hr Lisinopril (Prinivil) 40 mg PO DAILY [facility] Last Admin: 05/05/16 09:30 Dose: 40 mg Ondansetron HCl (Zofran Injection) 4 mg IVPB Q6H PRN PRN Reason: NAUSEA AND/OR VOMITING Last Admin: 05/05/16 23:24 Dose: 4 mg Oxycodone HCl (Roxicodone -) 5 mg PO Q4H PRN PRN Reason: PAIN Last Admin: 05/04/16 12:46 Dose: 5 mg Tamsulosin HCl (Flomax -) 0.4 mg PO DAILY [facility] Last Admin: 05/05/16 09:30 Dose: 0.4 mg - Objective Vital Signs: Vital Signs Temperature 97.8 F 05/06/16 06:00 Pulse Rate 97 H 05/06/16 06:00 Respiratory Rate 20 05/06/16 06:00 Blood Pressure 162/76 05/06/16 06:00 O2 Sat by Pulse Oximetry (%) 95 05/05/16 21:00 Cardiovascular: Yes: Regular Rate and Rhythm Respiratory: Yes: Regular, CTA Bilaterally Gastrointestinal: Yes: Soft, Hypoactive Bowel Sounds Labs: CBC, BMP 05/05/16 06:20 INR, PTT INR 0.99 (0.82-1.09) 05/02/16 09:30 Problem List - Problems (1) Incarcerated right inguinal hernia Assessment/Plan: NPO SURGICAL CONSULT IVF IV ABX Operative Date: 05/02/16 Pre-Operative Diagnosis: incarcerated recurrent right inguinal hernia, sbo Operation: open repair incarcerated recurrent right inguinal hernia Findings: incarcerated sliding hernia containing bladder and small bowel through a direct defect. bowel was viable but possible bacterial contamination precluded using permanent mesh Implants: 4"x6" phasix absorbable mesh overlay Post-Operative Diagnosis: Same as Pre-op Surgeon: Anjel Carver Code(s): K40.30 - UNIL INGUINAL HERNIA, W OBST, W/O GANGR, NOT SPCF RECUR (2) Small bowel obstruction, partial Assessment/Plan: ABOVE AMBULATE Code(s): K56.69 - OTHER INTESTINAL OBSTRUCTION (3) HTN (hypertension) Assessment/Plan: HOLD MEDS AND MONITOR Selected Entries 05/03/16 05/04/16 22:00 06:36 Blood Pressure 119/58 115/62 Code(s): I10 - ESSENTIAL (PRIMARY) HYPERTENSION (4) HLD (hyperlipidemia) Assessment/Plan: ON STATIN Code(s): E78.5 - HYPERLIPIDEMIA, UNSPECIFIED (5) Leukocytosis Code(s): D72.829 - ELEVATED WHITE BLOOD CELL COUNT, UNSPECIFIED
[2016-05-06 08:49] LABS: ALBUMIN 2.2 g/dl (3.4-5.0); ANION GAP 7 (8-16); CALCIUM 8.1 mg/dL (8.5-10.1); CO2 25 mmol/L (21-32); CREATININE 0.7 mg/dL (0.7-1.3); GLUCOSE,RANDOM 104 mg/dL (74-106); MAGNESIUM 1.9 mg/dL (1.8-2.4); SGOT/AST 15 U/L (15-37); SGPT/ALT 14 U/L (12-78)
[2016-05-06 08:51] LABS: ALK PHOS 65 U/L (45-117); BILIRUBIN,TOTAL 0.5 mg/dL (0.2-1.0); TOT PROT 5.1 g/dl (6.4-8.2)
[2016-05-06] MEDS: PANTOPRAZOLE SODIUM 100 ML IVPB SCH (09:56)
[2016-05-06] MEDS: LISINOPRIL 20 MG TABLET (FP) PO SCH (09:57)
[2016-05-06] MEDS: CLOPIDOGREL BISULFATE 75 MG TABLET (FP) PO SCH (09:57)
[2016-05-06] MEDS: TAMSULOSIN HCL 0.4 MG CAP.ER.24H (FP) PO SCH (09:57)
[2016-05-06] MEDS: amLODIPine BESYLATE 5 MG TABLET (FP) PO SCH (09:57)
--- NOTE | 2016-05-06 17:49 | PN ---
Progress Note (short form) - Note Progress Note: surgery pt seen and examined. tolerated some jello. not nauseated. had a bm. flatus. afebrile abd- soft, mild distension, nt, incision clean Laboratory Tests 05/05/16 05/05/16 06:20 06:20 WBC 5.4 Phosphorus 2.8 D A/P 1) pod#4- full liquids, stop ivf, poss d/c tomorrow if tolerating liquids. would stay on liquids until Thursday. F/u next week for staple removal. [id number]. 2) sbo- resolving, now ileus, slowly resolving 3) dehydration- should improve with diet 4) prophylaxis- lovenox, protonix, oob, spirometer 5) possible translocation- off abx, wbc wnl, no fever 6) sugically ok to resume Plavix if indicated. 7) hyponatremia- resolved 8) hypophosphatemia- resolved
[2016-05-06] MEDS: ATORVASTATIN CA 20 MG TABLET (FP) PO SCH (21:31)
--- NOTE | 2016-05-07 08:56 | DS ---
Physical Examination Vital Signs: Vital Signs Temperature 98.6 F 05/07/16 05:56 Pulse Rate 72 05/07/16 05:56 Respiratory Rate 20 05/07/16 05:56 Blood Pressure 151/71 05/07/16 05:56 O2 Sat by Pulse Oximetry (%) 95 05/06/16 21:00 Findings/Remarks: FEELS BETTER HAD BM Cardiovascular: Yes: Regular Rate and Rhythm Respiratory: Yes: Regular, CTA Bilaterally Gastrointestinal: Yes: Normal Bowel Sounds, Soft, Other (ALEXA INTACT RT INGUINAL) Labs: CBC, BMP 05/05/16 06:20 05/06/16 06:50 Discharge Summary Reason For Visit: INCARCERATED R INGUINAL HERNIA,PARTIAL SMALL BOWEL Current Active Problems HLD (hyperlipidemia) (Acute) HTN (hypertension) (Acute) Incarcerated right inguinal hernia (Acute) Leukocytosis (Acute) Small bowel obstruction, partial (Acute) Hospital Course: 76-year-old male with a significant past medical history of BPH and HTN, and presents to the emergency department with inguinal swelling and abdominal pain for 2 days. The patient reports that he developed a hernia in the right groin area, which worsened in size as he was shoveling for the past 2 days. He reports increasing RLQ pain and swelling, which radiates to the midgastric region. He reports associated nausea, constipation, and loss of appetite. The patient denies chest pain, shortness of breath, headache and dizziness. The patient denies fever, chills, vomit, and diarrhea. The patient denies dysuria, frequency, urgency and hematuria. - Past Medical History Cardiovascular: Yes: HTN, Hyperlipdemia Pulmonary: Yes: COPD Renal/: Yes: BPH - Smoking History Smoking history: Current every day smoker Aproximately how many cigarettes per day: 20 - Problems (1) Incarcerated right inguinal hernia Assessment/Plan: ABOVE Operative Date: 05/02/16 Pre-Operative Diagnosis: incarcerated recurrent right inguinal hernia, sbo Operation: open repair incarcerated recurrent right inguinal hernia Findings: incarcerated sliding hernia containing bladder and small bowel through a direct defect. bowel was viable but possible bacterial contamination precluded using permanent mesh Implants: 4"x6" phasix absorbable mesh overlay Post-Operative Diagnosis: Same as Pre-op Surgeon: Anjel Carver Code(s): K40.30 - UNIL INGUINAL HERNIA, W OBST, W/O GANGR, NOT SPCF RECUR (2) Small bowel obstruction, partial Assessment/Plan: ABOVE AMBULATE Code(s): K56.69 - OTHER INTESTINAL OBSTRUCTION (3) HTN (hypertension) Assessment/Plan: ON MEDS AND MONITOR Code(s): I10 - ESSENTIAL (PRIMARY) HYPERTENSION (4) HLD (hyperlipidemia) Assessment/Plan: ON STATIN Code(s): E78.5 - HYPERLIPIDEMIA, UNSPECIFIED (5) Leukocytosis Code(s): D72.829 - ELEVATED WHITE BLOOD CELL COUNT, UNSPECIFIED Condition: Improved - Instructions Referrals: Florentni Ivey MD [Primary Care Provider] - Anjel Carver MD [Staff Physician] - Disposition: HOME - Home Medications Comprehensive Discharge Medication List: Ambulatory Orders Amlodipine Besylate/Benazepril [Lotrel 5-40 mg Capsule] 1 each PO DAILY Atorvastatin Calcium 20 mg PO DAILY 05/02/16 Cholecalciferol (Vitamin D3) [Vitamin D -] 1,000 unit PO DAILY 05/02/16 Clopidogrel Bisulfate [Plavix -] 75 mg PO DAILY 05/02/16 Tamsulosin HCl 0.4 mg PO DAILY 05/02/16 Acetaminophen [Tylenol .Regular Strength -] 650 mg PO Q4H PRN #0 tablet Pantoprazole Sodium [Protonix -] 40 mg PO DAILY #30 tablet.ec 05/07/16
[2016-05-07] MEDS: amLODIPine BESYLATE 5 MG TABLET (FP) PO SCH (09:53)
[2016-05-07] MEDS: TAMSULOSIN HCL 0.4 MG CAP.ER.24H (FP) PO SCH (09:53)
[2016-05-07] MEDS: PANTOPRAZOLE SODIUM 100 ML IVPB SCH (09:53)
[2016-05-07] MEDS: LISINOPRIL 20 MG TABLET (FP) PO SCH (09:54)
[2016-05-07] MEDS: CLOPIDOGREL BISULFATE 75 MG TABLET (FP) PO SCH (09:54)
[2016-05-07 10:35] VITALS: BP 140/67; PULSE 77; TEMP 98.2
== END 2016-05-07 11:00 | disposition home or self-care (01) | DRG 351 ==
LOC: JER 08:52 → JERBED 13:24 → J6S 15:45
PROVIDERS: ADMIT Family Medicine; ATTEND Family Medicine
PROC: 0YU50JZ Supplement Right Inguinal Region with Synthetic Substitute, Open Approach (ICD-10-PCS; principal; 2016-05-02 20:30)
DX: K40.31 Unilateral inguinal hernia, with obstruction, without gangrene, recurrent (principal); E87.1 Hypo-osmolality and hyponatremia; K56.69 Other intestinal obstruction; E78.5 Hyperlipidemia, unspecified; I10 Essential (primary) hypertension; D72.829 Elevated white blood cell count, unspecified; N40.0 Benign prostatic hyperplasia without lower urinary tract symptoms; F17.210 Nicotine dependence, cigarettes, uncomplicated; E86.0 Dehydration; E83.39 Other disorders of phosphorus metabolism
CPT/HCPCS: 36415; 70450-TC; 71010-TC; 74177-TC; 80048; 80053; 82550; 83690; 83735; 84100; 84484; 85025; 85610; 86850; 86870; 86900; 86901; 86902; 93005; 93010; 94640; 94760; 97116-GP; 97161-GP; 99285-25; Q9967

== ENCOUNTER 2024-06-18 10:40 | Inpatient (IN) | payer OTHER ==
[2024-06-18 12:29] LABS: VENOUS BASE EXCESS 0.2 mmol/L (-2-2); VENOUS PCO2 35.4 mmHg (38-52); VENOUS PH 7.443 (7.310-7.410)
[2024-06-18 12:32] LABS: HEMOGLOBIN 14.8 g/dL (13.7-17.5); MCHC 32.9 g/dl (32.3-36.5); MEAN CELL VOLUME 88.1 fl (79.0-92.2); MEAN PLT VOLUME 10.5 fl (9.4-12.4); PLATELET COUNT 232 x10^3/uL (163-337); RDW 14.2 % (12.6-16.6)
[2024-06-18] MEDS ORDERED: ACETAMINOPHEN INJECTION 100 ML ONE (12:35)
[2024-06-18 12:39] LABS: INR 1.02 (0.83-1.09); PROTHROMBIN TIME (PATIENT) 11.1 SEC (9.7-13.0)
[2024-06-18 12:58] LABS: POTASSIUM 4.3 mmol/L (3.5-5.1)
[2024-06-18 13:01] LABS: ALBUMIN 3.7 g/dl (3.4-5.0); CALCIUM 9.6 mg/dL (8.5-10.1)
[2024-06-18 13:01] LABS: EPI CELLS 22 /uL (0-25.1); HYALINE CASTS 0 /uL (0-3.1); PH,URINE 6.5 (5.0-8.0); URINE APPEARANCE CLEAR; URINE BACTERIA 8 /uL (0-1359); URINE BILIRUBIN NEGATIVE (NEGATIVE); URINE COLOR YELLOW; URINE GLUCOSE (UA) NEGATIVE (NEGATIVE); URINE KETONE NEGATIVE (NEGATIVE); URINE LEUK ESTERASE 2+ (NEGATIVE); URINE NITRITE NEGATIVE (NEGATIVE); URINE PROTEIN TRACE (NEGATIVE); URINE RBC 55 /uL (0-23.9); URINE WBC 226 /uL (0-25.8)
[2024-06-18] MEDS: ACETAMINOPHEN 1000 MG/100 ML BAG IVPB ONE (13:01)
[2024-06-18 13:04] LABS: CREATININE 1.2 mg/dL (0.55-1.3)
[2024-06-18 13:06] LABS: TOT PROT 7.3 g/dl (6.4-8.2)
[2024-06-18 13:12] LABS: BLOOD UREA NITROGEN 21.2 mg/dL (7-18)
[2024-06-18 13:13] LABS: LACTIC ACID 2.2 mmol/L (0.4-2.0)
[2024-06-18] MEDS ORDERED: CEFTRIAXONE 1 G/50 ML PREMIX 50 ML IVPB ONE (14:05)
[2024-06-18] MEDS: CEFTRIAXONE 1,000 MG in DEXTROSE 5%-WATER - 50 ML IVPB ONE (14:13)
[2024-06-18] MEDS: SODIUM CHLORIDE 0.9% 500 ML INFUS.BAG IV ONE (14:52)
[2024-06-18 15:58] VITALS: BMI 20.9
[2024-06-18] MEDS: D5-1/2NS+10 MEQ KCL - 10 MEQ/1,000 ML INFUS.BAG IV SCH (16:52)
[2024-06-18] MEDS: ACETAMINOPHEN 325 MG TABLET (FP) PO PRN (19:38)
[2024-06-19] MEDS: TAMSULOSIN HCL 0.4 MG CAP PO SCH (08:19)
[2024-06-19 08:37] LABS: ABSOLUTE IMMATURE GRANULOCYTES 0.03 x10^3/uL (0.0-0.031); BASOPHILS # 0.03 x10^3/uL (0.01-0.08); EOSINOPHIL % 4.4 % (0.8-7.0); EOSINOPHILS # 0.38 x10^3/uL (0.04-0.54); HEMATOCRIT 39.6 % (40.1-51.0); HEMOGLOBIN 13.2 g/dL (13.7-17.5); MCHC 33.3 g/dl (32.3-36.5); MEAN PLT VOLUME 10.7 fl (9.4-12.4); MONOCYTE # 0.37 x10^3/uL (0.30-0.82); MONOCYTE % 4.2 % (5.3-12.2); PLATELET COUNT 163 x10^3/uL (163-337); RDW 14.3 % (12.6-16.6)
[2024-06-19 08:53] LABS: POTASSIUM 4.1 mmol/L (3.5-5.1)
[2024-06-19 09:04] LABS: CALCIUM 8.5 mg/dL (8.5-10.1)
[2024-06-19 09:05] LABS: BLOOD UREA NITROGEN 19.2 mg/dL (7-18)
[2024-06-19 09:08] LABS: PHOSPHOROUS 2.1 mg/dL (2.5-4.9)
[2024-06-19 09:09] LABS: BILIRUBIN,TOTAL 0.6 mg/dL (0.2-1); TOT PROT 5.4 g/dl (6.4-8.2)
[2024-06-19 09:13] LABS: ALBUMIN 2.6 g/dl (3.4-5.0)
[2024-06-19] MEDS: PANTOPRAZOLE 40 MG TABLET PO SCH (09:50)
[2024-06-19] MEDS: CLOPIDOGREL BISULFATE 75 MG TABLET (FP) PO SCH (09:50)
[2024-06-19] MEDS: LISINOPRIL 5 MG TABLET PO SCH (09:50)
[2024-06-19] MEDS: ENOXAPARIN NA (PORCINE) 40 MG/0.4 ML DISP.SYRIN SQ SCH (09:50)
[2024-06-19] MEDS: CEFTRIAXONE 1 G/50 ML PREMIX 50 ML IVPB SCH (11:18)
[2024-06-19] MEDS: ERTAPENEM SODIUM 1 GM in SODIUM CHLORIDE 50 ML IVPB SCH (13:53)
[2024-06-19] MEDS: ACETAMINOPHEN 325 MG TABLET (FP) PO ONE (20:35)
[2024-06-20] MEDS ORDERED: CEFTRIAXONE 1 GM in DEXTROSE 5%-WATER - 50 ML IVPB SCH (10:00)
[2024-06-20] MEDS: SODIUM CHLORIDE 1,000 ML IV SCH (17:18)
[2024-06-21 06:45] VITALS: RESP 18
[2024-06-21 14:45] VITALS: BP 131/82; PULSE 90; TEMP 98.1
== END 2024-06-21 18:42 | disposition home or self-care (01) | DRG 872 ==
LOC: JER 10:40 → JERBED 13:55 → J7W 15:43
PROVIDERS: ADMIT Internal Medicine; ATTEND Internal Medicine
DX: A41.9 Sepsis, unspecified organism (principal); N39.0 Urinary tract infection, site not specified; E87.20 Acidosis, unspecified; E87.1 Hypo-osmolality and hyponatremia; I10 Essential (primary) hypertension; E78.5 Hyperlipidemia, unspecified; I25.10 Atherosclerotic heart disease of native coronary artery without angina pectoris; Z72.0 Tobacco use
CPT/HCPCS: 0241U-QW; 36415; 70450-TC; 71045-TC-FY; 72125-TC; 80053; 81003; 82803; 83605; 83735; 84100; 84484; 85025; 85610; 85730; 86850; 86900; 86901; 87040; 87086; 93005; 93010; 97116-GP; 97162-GP; 99285-25; J0131

== ENCOUNTER 2024-06-22 14:37 | Inpatient (IN) | payer OTHER ==
[2024-06-22] MEDS: PIPERACILLIN/TAZOB 4.5 GM 4.5 GM in DEXTROSE 5%-WATER 100 ML IVPB ONE (16:15)
[2024-06-22] MEDS: ACETAMINOPHEN 1000 MG/100 ML BAG IVPB ONE (16:25)
[2024-06-22] MEDS ORDERED: ACETAMINOPHEN INJECTION 100 ML ONE (16:40)
[2024-06-22] MEDS ORDERED: VANCOMYCIN 1 GM PREMIX (F) 1 GM/200 ML BAG ONE (16:41)
[2024-06-22] MEDS ORDERED: PIPERACILLIN/TAZOB 4.5 GM 4.5 GM/100 ML BAG IVPB ONE (16:41)
[2024-06-22 16:45] LABS: HEMATOCRIT 45.5 % (40.1-51.0); MEAN PLT VOLUME 10.7 fl (9.4-12.4); PLATELET COUNT 224 x10^3/uL (163-337); RDW 13.8 % (12.6-16.6)
[2024-06-22 16:49] LABS: VENOUS BASE EXCESS -3.6 mmol/L (-2-2); VENOUS O2 SATURATION 51.6 % (70-80); VENOUS PCO2 29.6 mmHg (38-52); VENOUS PH 7.43 (7.310-7.410)
[2024-06-22 16:52] LABS: INR 1.05 (0.83-1.09); PROTHROMBIN TIME (PATIENT) 11.4 SEC (9.7-13.0)
[2024-06-22 16:55] LABS: ACTIVATED PTT 32.7 SECONDS (25.2-36.5)
[2024-06-22] MEDS: VANCOMYCIN 1,000 MG in DEXTROSE 5%-WATER - 250 ML IVPB ONE (16:55)
[2024-06-22] MEDS: LACTATED RINGERS SOLUTION 1000 ML INFUS.BAG IV ONE (17:00)
[2024-06-22 17:15] LABS: CALCIUM 9.2 mg/dL (8.5-10.1)
[2024-06-22 17:16] LABS: BLOOD UREA NITROGEN 23.5 mg/dL (7-18); MAGNESIUM 1.8 mg/dL (1.8-2.4)
[2024-06-22 17:18] LABS: ALBUMIN 3.2 g/dl (3.4-5.0); LACTIC ACID 2.3 mmol/L (0.4-2.0)
[2024-06-22 17:19] LABS: CREATININE 1.1 mg/dL (0.55-1.3); PHOSPHOROUS 1.9 mg/dL (2.5-4.9)
[2024-06-22 17:21] LABS: BILIRUBIN,TOTAL 1.6 mg/dL (0.2-1); TOT PROT 6.3 g/dl (6.4-8.2)
[2024-06-22] MEDS ORDERED: ACETAMINOPHEN 325 MG TABLET (FP) PO PRN (17:35)
[2024-06-22 18:53] LABS: EPI CELLS 19 /uL (0-25.1); HYALINE CASTS 1 /uL (0-3.1); URINE APPEARANCE CLEAR; URINE BACTERIA 32 /uL (0-1359); URINE BILIRUBIN NEGATIVE (NEGATIVE); URINE COLOR DK YELLOW; URINE GLUCOSE (UA) NEGATIVE (NEGATIVE); URINE KETONE 1+ (NEGATIVE); URINE LEUK ESTERASE 1+ (NEGATIVE); URINE NITRITE NEGATIVE (NEGATIVE); URINE PROTEIN TRACE (NEGATIVE); URINE RBC 16 /uL (0-23.9); URINE UROBILINOGEN 0.2 mg/dL (0.2-1.0); URINE WBC 57 /uL (0-25.8)
[2024-06-22] MEDS: HEPARIN NA (PORCINE) 5,000 UNITS/ML 1ML VIAL SQ SCH (21:24)
[2024-06-22] MEDS: D5-1/2NS+20 MEQ KCL - 20 MEQ/1,000 ML INFUS.BAG IV SCH (23:53)
[2024-06-23] MEDS: PIPERACILLIN/TAZOB 3.375 GM 50 ML IVPB SCH (01:16)
[2024-06-23 07:36] LABS: BASOPHILS # 0.04 x10^3/uL (0.01-0.08); HEMOGLOBIN 11.9 g/dL (13.7-17.5); MEAN CELL VOLUME 86.7 fl (79.0-92.2); MEAN PLT VOLUME 10.9 fl (9.4-12.4)
[2024-06-23 07:38] LABS: ABSOLUTE IMMATURE GRANULOCYTES 0.08 x10^3/uL (0.0-0.031); EOSINOPHIL % 5.7 % (0.8-7.0); EOSINOPHILS # 0.79 x10^3/uL (0.04-0.54); HEMATOCRIT 36.4 % (40.1-51.0); MCHC 32.7 g/dl (32.3-36.5); MONOCYTE % 3.6 % (5.3-12.2); PLATELET COUNT 190 x10^3/uL (163-337); RDW 14.1 % (12.6-16.6)
[2024-06-23 07:52] LABS: POTASSIUM 3.6 mmol/L (3.5-5.1)
[2024-06-23 08:02] LABS: TOT PROT 4.9 g/dl (6.4-8.2)
[2024-06-23 08:03] LABS: CALCIUM 8.4 mg/dL (8.5-10.1)
[2024-06-23 08:04] LABS: ALBUMIN 2.4 g/dl (3.4-5.0); MAGNESIUM 1.9 mg/dL (1.8-2.4)
[2024-06-23 08:06] LABS: CREATININE 1.1 mg/dL (0.55-1.3)
[2024-06-23] MEDS: PANTOPRAZOLE 40 MG TABLET PO SCH (09:33)
[2024-06-23] MEDS: LACTATED RINGERS SOLUTION 1000 ML INFUS.BAG IV ONE (09:33)
[2024-06-23] MEDS: TAMSULOSIN HCL 0.4 MG CAP PO SCH (09:34)
[2024-06-23] MEDS: CLOPIDOGREL BISULFATE 75 MG TABLET (FP) PO SCH (09:34)
[2024-06-24] MEDS: PIPERACILLIN/TAZOB 3.375 GM 3.375 GM in DEXTROSE 5%-WATER - 50 ML IVPB SCH (03:00)
[2024-06-24 07:12] LABS: ABSOLUTE IMMATURE GRANULOCYTES 0.04 x10^3/uL (0.0-0.031); PLATELET COUNT 202 x10^3/uL (163-337); RDW 14.1 % (12.6-16.6)
[2024-06-24 07:14] LABS: BASOPHILS # 0.04 x10^3/uL (0.01-0.08); EOSINOPHIL % 9.6 % (0.8-7.0); EOSINOPHILS # 1.01 x10^3/uL (0.04-0.54); HEMATOCRIT 36.3 % (40.1-51.0); MCHC 33.1 g/dl (32.3-36.5); MEAN CELL VOLUME 87.7 fl (79.0-92.2); MEAN PLT VOLUME 10.8 fl (9.4-12.4); MONOCYTE # 0.57 x10^3/uL (0.30-0.82); MONOCYTE % 5.4 % (5.3-12.2)
[2024-06-24 07:25] LABS: POTASSIUM 4.1 mmol/L (3.5-5.1)
[2024-06-24 07:31] LABS: CALCIUM 8.2 mg/dL (8.5-10.1)
[2024-06-24 07:33] LABS: BLOOD UREA NITROGEN 16.7 mg/dL (7-18)
[2024-06-24 07:36] LABS: CREATININE 1.1 mg/dL (0.55-1.3)
[2024-06-25] MEDS ORDERED: PIPERACILLIN/TAZOB 3.375 GM 50 ML IVPB SCH (02:00)
[2024-06-25 06:41] LABS: ABSOLUTE IMMATURE GRANULOCYTES 0.07 x10^3/uL (0.0-0.031); BASOPHILS # 0.05 x10^3/uL (0.01-0.08); EOSINOPHIL % 9.5 % (0.8-7.0); EOSINOPHILS # 1.07 x10^3/uL (0.04-0.54); HEMATOCRIT 40.3 % (40.1-51.0); HEMOGLOBIN 13.3 g/dL (13.7-17.5); MEAN CELL VOLUME 86.5 fl (79.0-92.2); MEAN PLT VOLUME 10.8 fl (9.4-12.4); MONOCYTE # 0.54 x10^3/uL (0.30-0.82); MONOCYTE % 4.8 % (5.3-12.2); PLATELET COUNT 245 x10^3/uL (163-337); RDW 14.3 % (12.6-16.6)
[2024-06-25 06:59] LABS: POTASSIUM 4.1 mmol/L (3.5-5.1)
[2024-06-25 07:06] LABS: ALBUMIN 2.7 g/dl (3.4-5.0)
[2024-06-25 07:10] LABS: BILIRUBIN,TOTAL 0.6 mg/dL (0.2-1); TOT PROT 5.6 g/dl (6.4-8.2)
[2024-06-25] MEDS: TAMSULOSIN HCL 0.4 MG CAP PO SCH (10:25)
[2024-06-26 09:52] VITALS: RESP 18
[2024-06-26 14:40] VITALS: BP 151/66; PULSE 69; TEMP 97.5
== END 2024-06-26 15:51 | disposition home health service (06) | DRG 690 ==
LOC: JER 14:37 → JERBED 16:20 → J4W 20:01
PROVIDERS: ADMIT Family Medicine; ATTEND Family Medicine
DX: N39.0 Urinary tract infection, site not specified (principal); E87.20 Acidosis, unspecified; I10 Essential (primary) hypertension; E78.5 Hyperlipidemia, unspecified; I25.10 Atherosclerotic heart disease of native coronary artery without angina pectoris; J44.9 Chronic obstructive pulmonary disease, unspecified; N40.1 Benign prostatic hyperplasia with lower urinary tract symptoms; R33.8 Other retention of urine; D72.829 Elevated white blood cell count, unspecified
CPT/HCPCS: 0241U-QW; 36415; 71045-TC-FY; 73030-TC-LT-FY; 80048; 80053; 81003; 82803; 83605; 83735; 84100; 84484; 85025; 85610; 85730; 86850; 86900; 86901; 87040; 87086; 93005; 93010; 97116-GP; 97162-GP; 99285-25; J0131; J1644